=== PATIENT | female | born 1955 | race Caucasian/White ===

== ENCOUNTER → 2017-02-18 | Outpatient (CLI) | payer BC ==
--- NOTE | ~2017-02-18 | CT77 ---
[facility] A Service of [facility] RADIOLOGY TEXT RESULTS PATIENT: BILL HODGES LOCATION: [facility] : 53 UNIT #: [id number] AGE: [address]: NAVNEET MCNALLY SEX: F ORDER DR: [id number] [facility] [address] [place], [place] [address] [id number] O MR#: [id number] Acc #: [id number] NAME: BILL HODGES : 1955 SEX: F STUDY DATE/TIME: 02/18/2017 15:38 UNIT: [facility] ROOM: STUDY DESCRIPTION: CT IAC, Sella, Temporal Bone W Attending Physician: Navneet Mcnally M.D. Referring Physician: Navneet Mcnally M.D. Ordering Physician: Physician Non-Staff Primary Care Physician: Jordin Foster M.D. MEDICAL IMAGING REPORT This report is preliminary unless electronic signature is present EXAM CT of the temporal bones without contrast, bilateral HISTORY 61-year-old female patient with vertigo for 3 years. No history of trauma. History of sensorineural hearing loss, dizziness and off-balance. Also has history of Parkinson's disease and skin cancer. COMMENT CT of the temporal bones performed in the axial plane without contrast followed by coronal oblique, coronal and oblique sagittal reconstructed images. This CT exam was performed with one or more of the following radiation dose reduction techniques: Automatic exposure control, adjustment of mA and/or kV according to patient size, and iterative reconstruction. There is no previous. There is [id number] mucosal thickening in the visualized paranasal sinuses with some partial opacification and a small air-fluid level in the left sphenoid sinus with some retained secretions. There are also [id number]-[id number] vascular calcifications at the base of the brain. Evaluation of the right temporal bone shows patent external auditory canal and a normal appearing tympanic membrane. Course of the petrous internal carotid artery is normal. Internal auditory canal, cochlea, vestibular aqueduct, inner ear structures are unremarkable. The course of the facial nerve is normal. The ossicular chain is intact. The middle ear is clear. The tegmen tympani is intact. Assessment of the left temporal bone shows normal external auditory canal. The mastoid air cells are clear. The tympanic membrane is unremarkable. The ossicular chain is intact. The inner ear structures are unremarkable. The vestibular aqueduct is normal. Internal auditory canal is normal. Course of the facial nerve is normal. The petrous internal carotid artery STS. [facility] A Service of [facility] RADIOLOGY TEXT RESULTS PATIENT: BILL HODGES LOCATION: [facility] : 53 UNIT #: [id number] AGE: [address]: NAVNEET MCNALLY SEX: F ORDER DR: has a normal course. Tegmen tympani is intact. IMPRESSION 1. Essentially normal CT of the temporal bones without contrast. 2. Paranasal sinus disease including an air-fluid level in the left sphenoid sinus, consistent with a component of acute sinusitis. 3. Vascular calcifications at the base of the brain. 4. If more information is needed with respect to the patient's complaint of dizziness and sensorineural hearing loss, and if she is a candidate, she is best further evaluated with an MRI of the brain with attention to the internal auditory canals with and without contrast. Dictated by... Merlene Koehler M.D. THIS IS AN ELECTRONICALLY VERIFIED REPORT Merlene Koehler M.D. at 02/20/2017 7:27 AM AMANUEL/janna TD: 02/19/2017 21:34 JOB #: [id number] MEDICAL IMAGING REPORT Page 1 of 1 COPY
== END | disposition home or self-care (01) ==
LOC: CCAT 14:57
DX: R42 Dizziness and giddiness (principal); J32.3 Chronic sphenoidal sinusitis; I99.8 Other disorder of circulatory system; H90.5 Unspecified sensorineural hearing loss
CPT/HCPCS: 70480